=== PATIENT | female | born 1955 | race Two or more races ===

== ENCOUNTER 2017-05-06 07:35 | Emergency (ER) | payer SELFPAY ==
[~2017-05-06] VITALS: Ht 162.6 cm; Wt 77.1 kg
[~2017-05-06 07:35] MED LIST: IBUP200C5 PO
--- NOTE | 2017-05-06 08:32 | NUR ---
PT REC'D TO ER C/O ONE WEEK LEFT LEG PAIN
[2017-05-06 08:53] LABS: BASOPHILS % (AUTO) 0.7 % (0.0-2.0); EOSINOPHILS # (AUTO) 0.1 /CMM (0.0-0.7); EOSINOPHILS % (AUTO) 2.7 % (0.0-6.0); HEMATOCRIT 42 % (33-45); HEMOGLOBIN 14.4 g/dL (11.5-14.8); LYMPHOCYTES # (AUTO) 1.1 /CMM (0.8-4.8); LYMPHOCYTES % (AUTO) 24.5 % (20.0-44.0); MEAN CORPUSCULAR HEMOGLOBIN 30 PG (26.0-33.0); MEAN CORPUSCULAR HGB CONC 34 g/dl (31.0-36.0); MEAN CORPUSCULAR VOLUME 87 fL (82-100); MONOCYTES # (AUTO) 0.4 /CMM (0.1-1.30); MONOCYTES % (AUTO) 9.1 % (2.0-12.0); NEUTROPHILS # (AUTO) 2.9 /CMM (1.8-8.9); PLATELET COUNT (AUTO) 242 /CMM (150-450); RDW COEFFICIENT OF VARIATION 13.6 (11.5-15.0); RED BLOOD CELL COUNT(AUTO) 4.89 MIL/uL (4.0-5.2); WHITE BLOOD COUNT (AUTO) 4.6 K/uL (4.3-11.0)
[2017-05-06] MEDS ORDERED: HYDROCODONE/APAP 5/325MG 1 EACH TABLET ONE (08:59)
[2017-05-06] MEDS ORDERED: HYDROCODONE/APAP 5/325MG 1 EACH TABLET PO ONE (09:00)
[2017-05-06 09:03] LABS: CALCIUM, SERUM 8.4 mg/dL (8.5-10.1); CREATININE 0.7 mg/dL (0.6-1.3)
[2017-05-06 09:04] LABS: POTASSIUM 2.8 mmol/L (3.5-5.1)
--- NOTE | 2017-05-06 09:17 | NUR ---
PT GIVEN KDUR NORCO 5325 MG PO
[2017-05-06] MEDS ORDERED: POTASSIUM CHLORIDE 20 MEQ TAB.PRT.SR PO ONE ×2 (09:19→09:30)
[2017-05-06] MEDS ORDERED: POTASSIUM CHLORIDE 10 MEQ/50 ML PREMIXED IVPB FOR PERIPHERAL LINE IV ONE (09:30)
--- NOTE | 2017-05-06 09:57 | NUR ---
IV STARTED 20 RT AC PER MD
[2017-05-06] MEDS ORDERED: Magnesium 1GM/D5W 100ML PREMIX 200 ML IV ONE (10:03)
--- NOTE | 2017-05-06 10:05 | NUR ---
CALLED PHARMACY, SPOKE O SIXTO FOX POTASSIUM CL IVPB
[2017-05-06] MEDS: Magnesium 1GM/D5W 100ML PREMIX 100 ML IV SCH ×2 (10:09→12:01)
[2017-05-06] MEDS: Potassium Chloride 10 MEQ in IV D5W 50 ML IV SCH ×3 (11:00→12:00)
--- NOTE | 2017-05-06 11:29 | NUR ---
PT GIVEN POT PER MD ORDER 50/50 X2
--- NOTE | 2017-05-06 12:02 | NUR ---
2ND BAG POT 50/50 OVER ONE HOUR STARTED NOW END TIME 1300
--- NOTE | 2017-05-06 12:20 | NUR ---
LEFT ARM BURNING NS 500 CC
--- NOTE | 2017-05-06 13:03 | NUR ---
PT RESTING IV LEFT AC SITE GOOD
[2017-05-06 13:32] VITALS: BP 162/79
--- NOTE | 2017-05-06 13:36 | NUR ---
PT. VERBALIZED UNDERSTANDING OF AFTERCARE INSTRUCTIONS.Patient discharged to home in stable condition. Written and verbal after care instructions given. Patient verbalizes understanding of instruction.IV removed. Catheter intact and site benign. Pressure and 4x4 applied to site. No bleeding noted.
== END 2017-05-06 13:37 | disposition home or self-care (01) ==
LOC: ER 07:37
DX: M79.604 Pain in right leg (principal); R20.2 Paresthesia of skin; E87.6 Hypokalemia; I10 Essential (primary) hypertension
CPT/HCPCS: 36415; 73502; 80048; 82040; 82550; 85025; 93971; 96365 ×2; 96366; 96368; 96375; 99285; A4216; A4606; J3475; J3480; J7040; J7060; Z7610

== ENCOUNTER 2021-01-27 03:30 | Inpatient (IN) | payer OTHER ==
[~2021-01-27] VITALS: Ht 152.4 cm; Wt 77.1 kg
--- NOTE | 2021-01-27 03:45 | NUR ---
SAMPLE DISPLAY PREPARER NOTE RECEIVED PATIENT VIA GURNEY FROM STORE MANAGER. DIRECT ADMIT FROM MARY JO MAGNOLIA. A/OX3, AMHARIC SPEAKING. ON OXYGEN 4L/MIN VIA NASAL CANNULA. O2 SAT 91%. INCREASED O2 TO 6L, REMAINS SATING 91-92%, PLACED ON A SIMPLE MASK 10L/MIN, O2 SAT 95%. RESPIRATIONS ARE EVEN AND UNLABORED. PATIENT DENIES SOB. NO C/O PAIN AT THIS TIME. IN NO APPARENT DISTRESS. EXTERNAL TELE MONITOR READS SINUS RHYTHM SINUS TACHYCARDIA. IV ACCESS IN RAC#20 PATENT AND SALINE LOCKED. INATAL PHYSICAL ASSESSMENT COMPLETED AT THIS TIME. SKIN ASSESSMENT DONE, SKIN INTACT. SENIOR ADMINISTRATIVE SERVICES OFFICER OBTAINED VITALS AND COMPLETED BELONGINGS LIST. BED IS LOW AND LOCKED, HOB ELEVATED IN SEMI FOWLERS, SIDE RIAL SUP X2, CALL LIGHT WITHIN REACH. EXPLAINED USE OF CALL LIGHT.
[2021-01-27 04:00] VITALS: BP 145/71
[2021-01-27] MEDS ORDERED: ACETAMINOPHEN 325 MG TABLET PO PRN (04:30)
[2021-01-27] MEDS ORDERED: ONDANSETRON HCL/PF 4 MG/2 ML VIAL IVP PRN (04:30)
--- NOTE | 2021-01-27 05:23 | NUR ---
RN NOTE CALLED EXTRACTIONS TECHNOLOGIST DR. CHAN TO INFORMED HIM THAT I RECEIVED PATIENT ON 4L/MIN VIA NASAL CANNULA O2 SAT 91%, INCREASED TO 10L SIMPLE MASK SATURATING 95%, PATIENTS O2 SAT HAS GONE DOWN TO 92% ON 10L, AND NOW PATIENT IS CURRENTLY ON 15L NRB. NO NEW ORDERS RECEIVED.
[2021-01-27 06:33] LABS: BASOPHILS % (AUTO) 0.1 % (0.0-2.0); HEMATOCRIT 36 % (33-45); HEMOGLOBIN 12.3 g/dL (11.5-14.8); LYMPHOCYTES # (AUTO) 0.4 K/uL (0.8-4.8); LYMPHOCYTES % (AUTO) 5.1 % (20.0-44.0); MEAN CORPUSCULAR HGB CONC 34 g/dl (31.0-36.0); MEAN CORPUSCULAR VOLUME 91 fL (82-100); MONOCYTES # (AUTO) 0.5 K/uL (0.1-1.30); MONOCYTES % (AUTO) 6.6 % (2.0-12.0); NEUTROPHILS # (AUTO) 6.9 K/uL (1.8-8.9); NEUTROPHILS % (AUTO) 88.2 % (43.0-81.0); PLATELET COUNT (AUTO) 161 K/uL (150-450); RED BLOOD CELL COUNT(AUTO) 4.02 MIL/uL (4.0-5.2); WHITE BLOOD COUNT (AUTO) 7.8 K/uL (4.3-11.0)
--- NOTE | 2021-01-27 06:43 | NUR ---
RN NOTE PATIENT RESTING IN BED. A/OX3, ON OXYGEN 15L/MIN VIA VIA NRB, O2 SAT 97%. RESPIRATIONS ARE EVEN AND UNLABORED. NO SOB. NO DISTRESS. TELE READS SINUS RHYTHM. RAC#20 SALINE LOCKED. BED REMAINS LOW AND LOCKED, HOB ELEVATED IN SEMI FOWLERS, SIDE RIAL SUP X2, CALL LIGHT WITHIN REACH. WILL ENDORSE TO ONCOMIING SHIFT
[2021-01-27 07:14] LABS: CREATININE 0.5 mg/dL (0.6-1.3); POTASSIUM 3.3 mmol/L (3.5-5.1)
--- NOTE | 2021-01-27 07:30 | NUR ---
RN OPENING NOTES TELE NOTE PATIENT RECEIVED RESTING IN BED. A/OX3-4, ON OXYGEN 15L/MIN VIA VIA NRB, O2 SAT 95%. RESPIRATIONS ARE EVEN AND UNLABORED WITH NO SIGH OF DISTRESS AT THIS TIME. NO SOB. TELE READS SINUS RHYTHM HR 95. RAC#20 SALINE LOCKED AND FLUSHING WELL, SAFETY MEASURES IN PLACE, BED REMAINS LOW AND LOCKED, HOB ELEVATED IN SEMI FOWLERS, CALL LIGHT WITHIN REACH. WILL CONTINUE TO MONITOR
[2021-01-27 08:19] LABS: C-REACTIVE PROTEIN 20.2 mg/dL (0.0-0.9)
--- NOTE | 2021-01-27 08:22 | NUR ---
TELE NOTES ASSISTED PT TO BEDSIDE COMMODE ABLE TO URINATE WELL, AND EATING BREAKFAST ALSO WELL, NO SOB AT THIS TIME WILL CONTINUE TO MONITOR
[2021-01-27] MEDS: DEXAMETHASONE SOD PHOSPHATE 10 MG/ML VIAL IV SCH (08:58)
[2021-01-27 09:00] VITALS: BP 100/61
[2021-01-27] MEDS ORDERED: GABA-532 PO (09:44)
[2021-01-27] MEDS ORDERED: ATOR20TA PO (09:44)
[2021-01-27] MEDS ORDERED: ASPI-1498 PO (09:44)
[2021-01-27] MEDS ORDERED: LABE300T2 PO (09:44)
[2021-01-27] MEDS ORDERED: MINO2.5T PO (09:44)
[2021-01-27] MEDS ORDERED: AMLO10TA4 PO (09:44)
[2021-01-27] MEDS ORDERED: LEVE750T10 PO (09:44)
[2021-01-27] MEDS ORDERED: LISI20TA30 PO (09:44)
--- NOTE | 2021-01-27 10:00 | NUR ---
radio television announcer note dr heaton at beside updated patient condition, ekg done per order dr campos as ordered
[2021-01-27 10:03] LABS: MAGNESIUM 2.3 mg/dL (1.8-2.4)
[2021-01-27] MEDS: POTASSIUM CHLORIDE 20 MEQ TAB.PRT.SR PO SCH ×3 (10:25→12:31)
[2021-01-27 10:26] LABS: THYROID STIMULATING HORMONE 0.841 uIU/mL (0.358-3.74)
[2021-01-27] MEDS: ENOXAPARIN SODIUM 40 MG/0.4 ML DISP.SYRIN SQ SCH ×2 (10:32→21:54)
--- NOTE | 2021-01-27 12:37 | NUR ---
telescope operator note 2d echo done as ordered
[2021-01-27 12:39] VITALS: BP 100/39
--- NOTE | 2021-01-27 12:41 | NUR ---
telephoto engineer note spoke with dr abundio villareal do med recon stated that will do it Addendum: 01/27/21 at 1401 by FAISAL DON RN DOG TRACK KENNEL MANAGER NOTE ROUNDS MADE, RESTING COMFORTABLY, NOT IN DISTRESS
[2021-01-27] MEDS ORDERED: LABE100T5 PO (14:59)
[2021-01-27] MEDS ORDERED: CHOL200076 PO (15:15)
[2021-01-27] MEDS ORDERED: REMDESIVIR (CHARGED) 200 MG, *LOADING DOSE 1 EA in IV NS 0.9% 210 ML IV ONE (16:00)
[2021-01-27] MEDS: GABAPENTIN 100 MG CAPSULE PO SCH (16:32)
[2021-01-27] MEDS: LEVETIRACETAM (250 MG) 250 MG TABLET PO SCH (16:33)
[2021-01-27 16:48] VITALS: BP 116/55
--- NOTE | 2021-01-27 17:16 | NUR ---
agent telegrapher note per dr acevedo to resume Catracho and Michael from med recon , order carried out
[2021-01-27] MEDS ORDERED: IBUPROFEN 200 MG TABLET PO PRN (17:30)
--- NOTE | 2021-01-27 18:25 | NUR ---
RN CLOSING NOTES TELE. PATIENT IS RESTING IN BED. A/OX3-4, ON OXYGEN 15L/MIN VIA NRM, O2 SAT 95%. RESPIRATIONS ARE EVEN AND UNLABORED WITH NO SIGH OF DISTRESS AT THIS TIME, NO SOB. TELE READS SINUS RHYTHM HR 95. RAC#20 SALINE LOCKED AND FLUSHING WELL, SAFETY MEASURES IN PLACE, BED REMAINS LOW AND LOCKED, HOB ELEVATED IN SEMI FOWLERS, CALL LIGHT WITHIN REACH. ALL NEEDS MET DURING SHIFT, WILL ENDORSE TO RN MEDICAREKENNEL HAND
--- NOTE | 2021-01-27 18:35 | NUR ---
PRESALES CONSULTANT NOTES PT ASSISTED TO BED SIDE COMMODE WITHOUT PROBLEM, CHANGED TO SIMPLE MASK 8L/MIN O2 SAT 94 % WILL CONTINUE TO MONITOR.
[2021-01-27 20:00] VITALS: BP 123/76
[2021-01-28] VITALS: BP 127/81
[2021-01-28 04:00] VITALS: BP 132/85
[2021-01-28 07:01] LABS: BASOPHILS % (AUTO) 0.1 % (0.0-2.0); HEMATOCRIT 40 % (33-45); HEMOGLOBIN 13.2 g/dL (11.5-14.8); LYMPHOCYTES # (AUTO) 0.5 K/uL (0.8-4.8); LYMPHOCYTES % (AUTO) 6.2 % (20.0-44.0); MEAN CORPUSCULAR HGB CONC 33 g/dl (31.0-36.0); MEAN CORPUSCULAR VOLUME 91 fL (82-100); MONOCYTES # (AUTO) 0.4 K/uL (0.1-1.30); MONOCYTES % (AUTO) 6.1 % (2.0-12.0); NEUTROPHILS # (AUTO) 6.3 K/uL (1.8-8.9); NEUTROPHILS % (AUTO) 87.6 % (43.0-81.0); PLATELET COUNT (AUTO) 211 K/uL (150-450); RED BLOOD CELL COUNT(AUTO) 4.43 MIL/uL (4.0-5.2); WHITE BLOOD COUNT (AUTO) 7.2 K/uL (4.3-11.0)
[2021-01-28 07:19] LABS: ALBUMIN 2.4 g/dL (3.4-5.0); BILIRUBIN,TOTAL 0.2 mg/dL (0.2-1.0); CALCIUM, SERUM 8.7 mg/dL (8.5-10.1); CREATININE 0.6 mg/dL (0.6-1.3); MAGNESIUM 2.5 mg/dL (1.8-2.4); PHOSPHORUS 2.7 mg/dL (2.5-4.9); TOTAL PROTEIN, SERUM 7.3 g/dL (6.4-8.2)
--- NOTE | 2021-01-28 07:30 | NUR ---
RN OPENING NOTES RECEIVED PATIENT RESTING IN BED. A/OX3-4, ON OXYGEN VIA SIMPLE MASK AT 8LPM, O2 SAT 95%. RESPIRATIONS ARE EVEN AND UNLABORED WITH NO S/SX OF DISTRESS AT THIS TIME, NO SOB.IV ACCESS ON RAC#20 SALINE LOCKED AND FLUSHING WELL, SAFETY MEASURES IN PLACE, BED ON LOW AND LOCKED, HOB ELEVATED IN SEMI FOWLERS, CALL LIGHT WITHIN REACH., SIDE RAILS UP X 2. WILL CONTINUE TO MONITOR ACCORDINGLY
[2021-01-28 08:00] VITALS: BP 145/80
[2021-01-28] MEDS: DEXAMETHASONE SOD PHOSPHATE 10 MG/ML VIAL IV SCH (09:52)
[2021-01-28] MEDS: LEVETIRACETAM (250 MG) 250 MG TABLET PO SCH ×4 (09:52→17:09)
[2021-01-28] MEDS: GABAPENTIN 100 MG CAPSULE PO SCH ×3 (09:52→17:08)
[2021-01-28] MEDS: ENOXAPARIN SODIUM 40 MG/0.4 ML DISP.SYRIN SQ SCH ×2 (09:53→21:22)
[2021-01-28 12:12] VITALS: BP 147/78
[2021-01-28 12:29] LABS: C-REACTIVE PROTEIN 25.6 mg/dL (0.0-0.9)
[2021-01-28] MEDS: REMDESIVIR (CHARGED) 100 MG in IV NS 0.9% 100 ML IV SCH (16:00)
[2021-01-28 16:14] VITALS: BP 130/77
--- NOTE | 2021-01-28 17:56 | NUR ---
RN NOTES PATIENT REFUSED 1700 DOSE OF KEPPRA. RISK EXPLAINED, WILL RELAY CONCERN TO MD.
--- NOTE | 2021-01-28 18:37 | NUR ---
RN CLOSING NOTES PATIENT RESTING IN BED. A/OX3-4, ON OXYGEN VIA SIMPLE MASK AT 8LPM, O2 SAT 95%. RESPIRATIONS ARE EVEN AND UNLABORED WITH NO S/SX OF DISTRESS AT THIS TIME, NO SOB.IV ACCESS ON RAC#20 SALINE LOCKED AND FLUSHING WELL, SAFETY MEASURES IN PLACE, BED ON LOW AND LOCKED, HOB ELEVATED IN SEMI FOWLERS, CALL LIGHT WITHIN REACH., SIDE RAILS UP X 2. ALL NEEDS ATTENDED AND MET, DUE MEDS GIVEN ORDERED. WILL ENDORSE TO ONCOMING SHIFT FOR WILL.
--- NOTE | 2021-01-28 19:10 | NUR ---
RN NOTE RECEIVED PATIENT IN BED, AO X 4, PRIMARY LANGUAGE IS AMERICAN UNDERSTANDS BASIC KYRGY[place]. IN NO S/SX OF ACUTE DISTRESS AT THIS TIME, RESPIRATIONS EVEN AND UNLABORED, SATURATION AT 96% ON 8L VIA O2 MASK, SR ON THE MONITOR, HR IS 87. NOTED IV SITE AT RAC 20G, PATENT AND FLUSHING WELL, NO S/S OF INFECTION OR INFILTRATION, SALINE LOCKED. SAFETY MEASURES IMPLEMENTED. PATIENT BED ALARM IS ON. HEAD OF BED ELEVATED. BED IS LOCKED, IN LOWEST POSITION AND SIDE RAILS UP. CALL LIGHT WITHIN REACH OF THE PATIENT. WILL CONTINUE TO MONITOR AND REASSESS FOR ANY CHANGES.
[2021-01-28 20:00] VITALS: BP 146/75
[2021-01-29] VITALS: BP 157/85
[2021-01-29 04:00] VITALS: BP 162/92
--- NOTE | 2021-01-29 05:00 | NUR ---
RN NOTE NOTED BP AT 162/92 AT 0430. RECHECKED AT 0500 AND RESULTED 172/96. DR CHAN WAS NOTIFIED, AWAITING CALL BACK.
--- NOTE | 2021-01-29 05:50 | NUR ---
RN NOTE CALL BACK RECEIVED FROM DR CHAN, ORDERS RECEIVED TO ADMINISTER AMLODIPINE 10 MG X 1 NOW, IF SBP REMAINS >160, MAY GIVE LISINOPRIL 20 MG X 1. PLS FOLLOW UP MED RECON WITH SOCO COREA MD-ENDORSED TO ALEXY WORRELL Addendum: 01/29/21 at 0743 by LOI CURIEL RN BP RECHECKED AND RESULTED: 142/85.
[2021-01-29 06:26] LABS: HEMATOCRIT 42 % (33-45); LYMPHOCYTES # (AUTO) 0.5 K/uL (0.8-4.8); LYMPHOCYTES % (AUTO) 6.5 % (20.0-44.0); MEAN CORPUSCULAR HGB CONC 34 g/dl (31.0-36.0); MEAN CORPUSCULAR VOLUME 90 fL (82-100); MONOCYTES # (AUTO) 0.4 K/uL (0.1-1.30); MONOCYTES % (AUTO) 5.7 % (2.0-12.0); NEUTROPHILS % (AUTO) 87.8 % (43.0-81.0); PLATELET COUNT (AUTO) 281 K/uL (150-450); RED BLOOD CELL COUNT(AUTO) 4.64 MIL/uL (4.0-5.2); WHITE BLOOD COUNT (AUTO) 7.9 K/uL (4.3-11.0)
[2021-01-29] MEDS ORDERED: AMLODIPINE BESYLATE 10 MG TABLET PO ONE (06:30)
[2021-01-29 07:02] LABS: ALBUMIN 2.7 g/dL (3.4-5.0); BILIRUBIN,DIRECT 0.1 mg/dL (0.0-0.2); BILIRUBIN,TOTAL 0.3 mg/dL (0.2-1.0); CALCIUM, SERUM 8.8 mg/dL (8.5-10.1); CREATININE 0.6 mg/dL (0.6-1.3); MAGNESIUM 2.5 mg/dL (1.8-2.4); PHOSPHORUS 2.7 mg/dL (2.5-4.9); POTASSIUM 3.2 mmol/L (3.5-5.1); TOTAL PROTEIN, SERUM 7.6 g/dL (6.4-8.2)
--- NOTE | 2021-01-29 07:15 | NUR ---
RN OPENING NOTES RECEIVED PATIENT RESTING IN BED. A/OX3-4, ON OXYGEN VIA SIMPLE MASK AT 8LPM, O2 SAT 95%. RESPIRATIONS ARE EVEN AND UNLABORED WITH NO SIGNS AND SYMPTOMS OF DISTRESS AT THIS TIME, NO SOB.IV ACCESS ON RAC G20 SALINE LOCKED AND FLUSHING WELL, SINUS RHYTHM AT 70S SAFETY MEASURES IN PLACE, BED ON LOW AND LOCKED, HOB ELEVATED IN SEMI FOWLERS, CALL LIGHT WITHIN REACH., SIDE RAILS UP X 2. WILL CONTINUE TO MONITOR ACCORDINGLY
[2021-01-29 08:00] VITALS: BP 172/96
[2021-01-29] MEDS: LEVETIRACETAM (250 MG) 250 MG TABLET PO SCH ×4 (09:50→18:15)
[2021-01-29] MEDS: POTASSIUM CHLORIDE 20 MEQ TAB.PRT.SR PO SCH ×2 (09:50→10:56)
[2021-01-29] MEDS: DEXAMETHASONE SOD PHOSPHATE 10 MG/ML VIAL IV SCH (09:50)
[2021-01-29] MEDS: GABAPENTIN 100 MG CAPSULE PO SCH ×3 (09:50→18:15)
[2021-01-29] MEDS: ENOXAPARIN SODIUM 40 MG/0.4 ML DISP.SYRIN SQ SCH ×2 (10:00→21:30)
[2021-01-29] MEDS: CEFEPIME 2 GM in IV D5W 100 ML IV SCH ×2 (10:13→21:14)
[2021-01-29] MEDS: AZITHROMYCIN 500 MG in IV D5W 250 ML IV SCH (10:56)
[2021-01-29 12:00] VITALS: BP 172/96
[2021-01-29] MEDS ORDERED: GABAPENTIN 100 MG CAPSULE PO SCH (13:30)
[2021-01-29] MEDS: LABETALOL HCL (100MG) 100 MG TABLET PO SCH ×2 (13:58→18:14)
[2021-01-29] MEDS: AMLODIPINE BESYLATE 10 MG TABLET PO SCH (13:58)
[2021-01-29] MEDS: ASPIRIN EC 81 MG TABLET.DR PO SCH (13:59)
[2021-01-29] MEDS: LISINOPRIL (20MG) 20 MG TABLET PO SCH (13:59)
[2021-01-29 16:00] VITALS: BP 118/67
[2021-01-29] MEDS: REMDESIVIR (CHARGED) 100 MG in IV NS 0.9% 100 ML IV SCH (17:01)
[2021-01-29] MEDS: MINOXIDIL (2.5MG) 2.5 MG TABLET PO SCH (18:15)
--- NOTE | 2021-01-29 18:37 | NUR ---
RN CLOSING NOTES PATIENT STILL RESTING IN BED. A/OX3-4, ON OXYGEN VIA SIMPLE MASK AT 8LPM, O2 SAT 95%. RESPIRATIONS ARE EVEN AND UNLABORED WITH NO SIGNS AND SYMPTOMS OF DISTRESS AT THIS TIME, NO SOB.IV ACCESS ON RAC G20 SALINE LOCKED AND FLUSHING WELL, SINUS RHYTHM STILL AT 70S SAFETY MEASURES IN PLACE, BED ON LOW AND LOCKED, HOB ELEVATED IN SEMI FOWLERS, CALL LIGHT WITHIN REACH., SIDE RAILS UP X 2. WILL ENDORSE CONTINUITY OF CARE TO NEXT SHIFT
--- NOTE | 2021-01-29 19:00 | NUR ---
RN NOTE RECEIVED PATIENT IN BED, AO X 4, PRIMARY LANGUAGE IS NAURUAN UNDERSTANDS BASIC SPANISH. IN NO S/SX OF ACUTE DISTRESS AT THIS TIME, RESPIRATIONS EVEN AND UNLABORED, SATURATION AT 95% ON 7L VIA O2 MASK, SR ON THE MONITOR, HR IS 82. NOTED IV SITE AT RAC 20G, PATENT AND FLUSHING WELL, NO S/S OF INFECTION OR INFILTRATION, SALINE LOCKED. SAFETY MEASURES IMPLEMENTED. PATIENT BED ALARM IS ON. HEAD OF BED ELEVATED. BED IS LOCKED, IN LOWEST POSITION AND SIDE RAILS UP. CALL LIGHT WITHIN REACH OF THE PATIENT. WILL CONTINUE TO MONITOR AND REASSESS FOR ANY CHANGES.
[2021-01-29 20:00] VITALS: BP 132/73
[2021-01-29] MEDS: ATORVASTATIN 10 MG TABLET PO SCH (21:14)
[2021-01-30] VITALS (7 sets, daily range): BP systolic 114–141; BP diastolic 65–84
[2021-01-30] MEDS: CEFEPIME 2 GM in IV D5W 100 ML IV SCH ×3 (05:08→20:01)
[2021-01-30 06:43] LABS: BASOPHILS % (AUTO) 0.1 % (0.0-2.0); HEMATOCRIT 42 % (33-45); HEMOGLOBIN 13.9 g/dL (11.5-14.8); LYMPHOCYTES # (AUTO) 0.5 K/uL (0.8-4.8); LYMPHOCYTES % (AUTO) 7.6 % (20.0-44.0); MEAN CORPUSCULAR HGB CONC 33 g/dl (31.0-36.0); MEAN CORPUSCULAR VOLUME 91 fL (82-100); MONOCYTES # (AUTO) 0.5 K/uL (0.1-1.30); MONOCYTES % (AUTO) 7.1 % (2.0-12.0); NEUTROPHILS % (AUTO) 85.2 % (43.0-81.0); PLATELET COUNT (AUTO) 315 K/uL (150-450); RED BLOOD CELL COUNT(AUTO) 4.63 MIL/uL (4.0-5.2); WHITE BLOOD COUNT (AUTO) 7.1 K/uL (4.3-11.0)
[2021-01-30 07:02] LABS: ALBUMIN 2.5 g/dL (3.4-5.0); BILIRUBIN,DIRECT 0.1 mg/dL (0.0-0.2); BILIRUBIN,TOTAL 0.3 mg/dL (0.2-1.0); CALCIUM, SERUM 8.6 mg/dL (8.5-10.1); CREATININE 0.7 mg/dL (0.6-1.3); POTASSIUM 3.5 mmol/L (3.5-5.1)
--- NOTE | 2021-01-30 07:16 | NUR ---
RN NOTE PATIENT IS IN BED WITH HOB AT SEMI FOWLERS POSITION. PATIENT IS ON 7L NC WITH NO SIGNS OF LABORED BREATHING. PATIENT IS AOX4. RAC 20G IS PATENT AND INTACT. BED IS LOCKED IN THE LOWEST POSITION, 3 GUARD RAILS RAISED, CALL RIVERA WITHIN REACH, AND ALL HOSPITAL SAFETY PRECAUTIONS AR EBEING FOLLOWED. IWLL CONTINUE TO MONITOR THROUGHOUT SHIFT.
[2021-01-30] MEDS: DEXAMETHASONE SOD PHOSPHATE 10 MG/ML VIAL IV SCH (08:28)
[2021-01-30] MEDS: LABETALOL HCL (100MG) 100 MG TABLET PO SCH ×3 (08:28→16:57)
[2021-01-30] MEDS: ASPIRIN EC 81 MG TABLET.DR PO SCH (08:29)
[2021-01-30] MEDS: LISINOPRIL (20MG) 20 MG TABLET PO SCH (08:29)
[2021-01-30] MEDS: GABAPENTIN 100 MG CAPSULE PO SCH ×3 (08:29→16:57)
[2021-01-30] MEDS: LEVETIRACETAM (250 MG) 250 MG TABLET PO SCH ×2 (08:29→16:57)
[2021-01-30] MEDS: AMLODIPINE BESYLATE 10 MG TABLET PO SCH (08:29)
[2021-01-30] MEDS: ENOXAPARIN SODIUM 40 MG/0.4 ML DISP.SYRIN SQ SCH ×2 (08:31→20:03)
[2021-01-30] MEDS: AZITHROMYCIN 500 MG in IV D5W 250 ML IV SCH (09:50)
[2021-01-30 16:06] LABS: C-REACTIVE PROTEIN 3.7 mg/dL (0.0-0.9)
[2021-01-30] MEDS: REMDESIVIR (CHARGED) 100 MG in IV NS 0.9% 100 ML IV SCH (16:53)
[2021-01-30] MEDS: MINOXIDIL (2.5MG) 2.5 MG TABLET PO SCH (17:08)
--- NOTE | 2021-01-30 18:53 | NUR ---
RN NOTE PATIENT IS IN BED WITH HOB AT SEMI FOWLERS POSITION. PATIENT IS ON 5L NC WITH NO SIGNS OF LABORED BREATHING. PATIENT IS AOX4. RAC 20G IS PATENT AND INTACT. BED IS LOCKED IN THE LOWEST POSITION, 3 GUARD RAILS RAISED, CALL RIVERA WITHIN REACH, AND ALL HOSPITAL SAFETY PRECAUTIONS ARE BEING FOLLOWED. ALL DUE MEDS GIVEN AND PATIENT REMAINED STABLE THROUGHOUT SHIFT. WILL ENDORSE TO INJECTION MOLDING MACHINE SETTER RN.
[2021-01-30 19:30] LABS: BAND % (MANUAL) 1 % (0.0-5.0); LYMPHOCYTES % (MANUAL) 14 % (16-48); MONOCYTES % (MANUAL) 6 % (0-11.0); NEUTROPHILS % (MANUAL) 79 (42-76)
--- NOTE | 2021-01-30 20:00 | NUR ---
RECEIVED PATIENT IN BED, ALERT AND ORIENTED X4, ON 5LPM VIA NC, NO RESPIRATORY DISTRESS, INTERMITTENT COUGHING, AFEBRILE, VS STABLE, USES BSC, KEPT SAFE, WILL CONTINUE TO MONITOR.
[2021-01-30] MEDS: ATORVASTATIN 10 MG TABLET PO SCH (21:04)
[2021-01-31 00:29] VITALS: BP 141/90
[2021-01-31 04:00] VITALS: BP 130/79
[2021-01-31] MEDS: CEFEPIME 2 GM in IV D5W 100 ML IV SCH ×2 (04:13→12:15)
--- NOTE | 2021-01-31 06:40 | NUR ---
ALERT/ORIENTED X4, TITRATED O2 FROM 4 TO 3LPM, SPO2 96%, NO COMPLAIN OF PAIN, USES BSC, CONTINUE MAXIPIME, DECADRON, ZITHROMAX, REMDESIVIR / TODAY.
[2021-01-31 07:07] LABS: D-DIMER 0.48 mg/L(FEU (0.17-0.50)
[2021-01-31 07:12] LABS: EOSINOPHILS % (AUTO) 0.1 % (0.0-6.0); HEMATOCRIT 41 % (33-45); HEMOGLOBIN 13.7 g/dL (11.5-14.8); LYMPHOCYTES # (AUTO) 0.6 K/uL (0.8-4.8); LYMPHOCYTES % (AUTO) 7.7 % (20.0-44.0); MEAN CORPUSCULAR HGB CONC 33 g/dl (31.0-36.0); MEAN CORPUSCULAR VOLUME 89 fL (82-100); MONOCYTES # (AUTO) 0.6 K/uL (0.1-1.30); MONOCYTES % (AUTO) 7.5 % (2.0-12.0); NEUTROPHILS # (AUTO) 6.4 K/uL (1.8-8.9); NEUTROPHILS % (AUTO) 84.7 % (43.0-81.0); PLATELET COUNT (AUTO) 340 K/uL (150-450); WHITE BLOOD COUNT (AUTO) 7.5 K/uL (4.3-11.0)
--- NOTE | 2021-01-31 07:35 | NUR ---
RN OPENING NOTE PATIENT RECEIVED IN BED, RESTING, A&OX4. PATIENT ON 4L O2 NC WITH NO SIGNS OF LABORED BREATHING AT THIS TIME. PATIENT ON TELE MONITOR. RIGHT AC 20G PIV IN PLACE, PATENT WITH NO SIGNS OF INFILTRATION. NO DISTRESS NOTED AT THIS TIME. BED LOCKED AND IN LOWEST POSITION, 2 SIDE RAILS UP, CALL LIGHT WITHIN REACH, ALL SAFETY MEASURES IMPLEMENTED. WILL CONTINUE TO MONITOR.
[2021-01-31 07:46] LABS: ALBUMIN 2.5 g/dL (3.4-5.0); BILIRUBIN,DIRECT 0.1 mg/dL (0.0-0.2); BILIRUBIN,TOTAL 0.4 mg/dL (0.2-1.0); CALCIUM, SERUM 8.2 mg/dL (8.5-10.1); CREATININE 0.6 mg/dL (0.6-1.3); MAGNESIUM 2.5 mg/dL (1.8-2.4); PHOSPHORUS 2.8 mg/dL (2.5-4.9); POTASSIUM 3.2 mmol/L (3.5-5.1); TOTAL PROTEIN, SERUM 6.6 g/dL (6.4-8.2)
[2021-01-31 08:00] VITALS: BP 136/82
[2021-01-31] MEDS: AMLODIPINE BESYLATE 10 MG TABLET PO SCH (08:56)
[2021-01-31] MEDS: ASPIRIN EC 81 MG TABLET.DR PO SCH (08:56)
[2021-01-31] MEDS: GABAPENTIN 100 MG CAPSULE PO SCH ×3 (08:57→17:01)
[2021-01-31] MEDS: DEXAMETHASONE SOD PHOSPHATE 10 MG/ML VIAL IV SCH (08:57)
[2021-01-31] MEDS: LISINOPRIL (20MG) 20 MG TABLET PO SCH (08:57)
[2021-01-31] MEDS: LEVETIRACETAM (250 MG) 250 MG TABLET PO SCH ×2 (08:57→17:01)
[2021-01-31] MEDS: ENOXAPARIN SODIUM 40 MG/0.4 ML DISP.SYRIN SQ SCH ×2 (08:58→21:47)
[2021-01-31] MEDS: LABETALOL HCL (100MG) 100 MG TABLET PO SCH ×3 (09:00→17:01)
[2021-01-31] MEDS: AZITHROMYCIN 500 MG in IV D5W 250 ML IV SCH (09:01)
[2021-01-31] MEDS ORDERED: POTASSIUM CHLORIDE 20 MEQ TAB.PRT.SR PO SCH ×2 (10:00→11:00)
[2021-01-31 10:37] LABS: BAND % (MANUAL) 2 % (0.0-5.0); LYMPHOCYTES % (MANUAL) 14 % (16-48); MONOCYTES % (MANUAL) 2 % (0-11.0); NEUTROPHILS % (MANUAL) 82 (42-76)
[2021-01-31 12:00] VITALS: BP 122/78
[2021-01-31] MEDS: REMDESIVIR (CHARGED) 100 MG in IV NS 0.9% 100 ML IV SCH (15:11)
[2021-01-31 16:00] VITALS: BP 117/72
[2021-01-31] MEDS: MINOXIDIL (2.5MG) 2.5 MG TABLET PO SCH (17:01)
--- NOTE | 2021-01-31 18:39 | NUR ---
RN CLOSING NOTE PATIENT IN BED, RESTING, A&OX4. PATIENT ON 3L O2 NC WITH NO SIGNS OF LABORED BREATHING AT THIS TIME. TELE MONITOR ON, SINUS RHYTHM.RIGHT AC 20G PIV IN PLACE, PATENT WITH NO SIGNS OF INFILTRATION. NO DISTRESS NOTED AT THIS TIME. BED LOCKED AND IN LOWEST POSITION, 2 SIDE RAILS UP, CALL LIGHT WITHIN REACH, ALL SAFETY MEASURES IMPLEMENTED. WILL ENDORSE TO HAM CURER NURSE.
[2021-01-31 20:00] VITALS: BP 121/74
--- NOTE | 2021-01-31 20:10 | NUR ---
RN NOTE RECEIVED PATIENT IN BED, AWAKE, ALERT, AND VERBALLY RESPONSIVE. AOX4. ABLE TO MAKE NEEDS KNOWN. BREATHING EVEN AND UNLABORED. TOLERATING OXYGEN AT 3L/MIN. NO SOB NOTED. ON TELE MONITORING, SR AT 73 BPM. DENIES CHEST PAIN. DENIES CONSTIPATION. NOTED WITH RIGHT AC 18G. PATENT. NO INFILTRATION NOTED. DENIES PAIN AT THIS TIME. BED LOW, IN LOCKED POSITION. CALL LIGHT WITHIN REACH.
[2021-01-31] MEDS: ATORVASTATIN 10 MG TABLET PO SCH (21:45)
[2021-02-01] VITALS: BP 133/81
[2021-02-01 04:00] VITALS: BP 121/78
[2021-02-01 07:00] LABS: EOSINOPHILS % (AUTO) 0.1 % (0.0-6.0); HEMATOCRIT 42 % (33-45); HEMOGLOBIN 14.1 g/dL (11.5-14.8); LYMPHOCYTES # (AUTO) 0.6 K/uL (0.8-4.8); LYMPHOCYTES % (AUTO) 7.1 % (20.0-44.0); MEAN CORPUSCULAR HGB CONC 33 g/dl (31.0-36.0); MEAN CORPUSCULAR VOLUME 90 fL (82-100); MONOCYTES # (AUTO) 0.6 K/uL (0.1-1.30); MONOCYTES % (AUTO) 6.8 % (2.0-12.0); NEUTROPHILS # (AUTO) 7.4 K/uL (1.8-8.9); PLATELET COUNT (AUTO) 393 K/uL (150-450); WHITE BLOOD COUNT (AUTO) 8.6 K/uL (4.3-11.0)
[2021-02-01 07:26] LABS: CALCIUM, SERUM 8.5 mg/dL (8.5-10.1); CREATININE 0.7 mg/dL (0.6-1.3); POTASSIUM 3.7 mmol/L (3.5-5.1)
[2021-02-01] MEDS: LABETALOL HCL (100MG) 100 MG TABLET PO SCH ×3 (08:28→16:32)
[2021-02-01] MEDS: DEXAMETHASONE SOD PHOSPHATE 10 MG/ML VIAL IV SCH (08:28)
[2021-02-01] MEDS: GABAPENTIN 100 MG CAPSULE PO SCH ×3 (08:29→16:32)
[2021-02-01] MEDS: LEVETIRACETAM (250 MG) 250 MG TABLET PO SCH ×2 (08:29→16:32)
[2021-02-01] MEDS: ASPIRIN EC 81 MG TABLET.DR PO SCH (08:29)
[2021-02-01] MEDS: LISINOPRIL (20MG) 20 MG TABLET PO SCH (08:30)
[2021-02-01] MEDS: AMLODIPINE BESYLATE 10 MG TABLET PO SCH (08:30)
[2021-02-01] MEDS: ENOXAPARIN SODIUM 40 MG/0.4 ML DISP.SYRIN SQ SCH ×2 (08:34→21:39)
[2021-02-01 09:37] LABS: BAND % (MANUAL) 3 % (0.0-5.0); LYMPHOCYTES % (MANUAL) 10 % (16-48); METAMYELOCYTES % 1 % (0-0); MONOCYTES % (MANUAL) 7 % (0-11.0); MYELOCYTES % 5 % (0-0); NEUTROPHILS % (MANUAL) 74 (42-76)
[2021-02-01] MEDS: AZITHROMYCIN 250 MG TABLET PO SCH (10:30)
[2021-02-01 11:00] VITALS: BP 149/76
--- NOTE | 2021-02-01 11:17 | NUR ---
PATIENT FOR D/C PLANNING ,ROOM AIR SATURATION AT REST 86% NEED HOME OXYGEN CM MADE AWARE.
[2021-02-01 12:00] VITALS: BP 142/70
[2021-02-01 16:00] VITALS: BP 122/69
[2021-02-01] MEDS: MINOXIDIL (2.5MG) 2.5 MG TABLET PO SCH (18:07)
--- NOTE | 2021-02-01 18:52 | NUR ---
RECEIVED OXYGEN TANK AND OXYGEN NASAL CANNULA TO TAKE HOME WHEN D/C TOMORROW EDUCATED ON HOW TO USE AND IMPORTANCE OF USE, DEVICES ARE IN ROOM AT BED SIDE, PLAN IS TO D/C PATIENT TOMORROW AROUND 12 NOON, PATIENT AWARE AND ADVISED FAMILY MEMBERS, KEPT PATIENT DRY CLEAN, ENCOURAGED HYDRATION AND FLUIDS, ABLE TO AMBULATE TO AND FROM BED SIDE COMMODE ON OWN, SAFETY MEASURES IN PLACE, BED LOW TO FLOOR, WHEELS LOCKED, CALL LIGHT IN REACH, IV SITE PATENT EASY TO FLUSH, TOLERATING IV MEDICATIONS AND PO MEDICATIONS WELL NO ADVERSE SIDE EFFECTS NOTED FROM ABT TREATMENT, HOB IN SEMI FOWLERS , REPOSITIONED AND MADE COMFORTABLE.
--- NOTE | 2021-02-01 19:40 | NUR ---
RN NOTE PT RECEIVED IN BED. PT IS ON 3L OF O2 VIA NC SHOWING NO S/S OF RESP DISTRESS. BREATHING EVEN AND UNLABORED. NO SIGNS OF RESP DISTRESS. PT IS A/OX4. PT IS ABLE TO AMBULATE. ON CARDIAC DIET. IV ACCESS NOTED ON RIGHT AC #20. LINE FLUSHED, PATENT, AND INTACT WITH NO S/SX OF INFILTRATION. ALL SAFETY MEASURES IMPLEMENTED. BED ALARM ON. BED LOCKED AND IN LOWEST POSITION. SIDE RAILS UP. CALL LIGHT WITHIN REACH. WILL CONTINUE TO MONITOR AND ASSESS FOR ANY CHANGES THROUGHOUT SHIFT.
[2021-02-01 20:00] VITALS: BP 126/70
[2021-02-01] MEDS: ATORVASTATIN 10 MG TABLET PO SCH (21:39)
[2021-02-02 04:00] VITALS: BP 119/79
--- NOTE | 2021-02-02 06:54 | NUR ---
RN NOTE NO CHANGES IN PT CONDITION DURING SHIFT. PT IS ON 3L OF O2 VIA NC SHOWING NO S/S OF RESP DISTRESS. BREATHING EVEN AND UNLABORED. NO SIGNS OF RESP DISTRESS. PT IS A/OX4. IV ACCESS ON RIGHT AC #20. LINE FLUSHED, PATENT, AND INTACT WITH NO S/SX OF INFILTRATION. ALL DUE MEDS GIVEN ORDERED. PT KEPT CLEAN AND COMFORTABLE. ALL SAFETY MEASURES IMPLEMENTED. BED ALARM ON. BED LOCKED AND IN LOWEST POSITION. SIDE RAILS UP. CALL LIGHT WITHIN REACH. WILL ENDORSE TO MORNING SHIFT RN FOR WILL.
[2021-02-02] MEDS: LABETALOL HCL (100MG) 100 MG TABLET PO SCH ×2 (08:41→13:00)
[2021-02-02] MEDS: LISINOPRIL (20MG) 20 MG TABLET PO SCH (08:41)
[2021-02-02] MEDS: LEVETIRACETAM (250 MG) 250 MG TABLET PO SCH (08:42)
[2021-02-02] MEDS: ASPIRIN EC 81 MG TABLET.DR PO SCH (08:42)
[2021-02-02] MEDS: GABAPENTIN 100 MG CAPSULE PO SCH ×2 (08:42→13:00)
[2021-02-02] MEDS: AZITHROMYCIN 250 MG TABLET PO SCH (08:42)
[2021-02-02] MEDS: ENOXAPARIN SODIUM 40 MG/0.4 ML DISP.SYRIN SQ SCH (08:46)
[2021-02-02] MEDS: DEXAMETHASONE SOD PHOSPHATE 10 MG/ML VIAL IV SCH (08:46)
[2021-02-02 08:47] VITALS: BP 139/73
[2021-02-02] MEDS: AMLODIPINE BESYLATE 10 MG TABLET PO SCH (08:47)
[2021-02-02] MEDS ORDERED: DEXA6TAB6 PO (10:56)
[2021-02-02] MEDS ORDERED: ASPI-1169 PO (10:56)
== END 2021-02-02 13:45 | disposition home or self-care (01) | DRG 137 ==
LOC: TELE1 03:30 → MEDSG1 02-01 11:16
PROVIDERS: ATTEND Nurse Practitioner Acute Care
PROC: XW033E5 Introduction of Remdesivir Anti-infective into Peripheral Vein, Percutaneous Approach, New Technology Group 5 (ICD-10-PCS; principal; 2021-01-27)
DX: U07.1 COVID-19 (principal); J96.01 Acute respiratory failure with hypoxia; J12.82 Pneumonia due to coronavirus disease 2019; R55 Syncope and collapse; E78.5 Hyperlipidemia, unspecified; E66.9 Obesity, unspecified; Z86.73 Personal history of transient ischemic attack (TIA), and cerebral infarction without residual deficits; E87.6 Hypokalemia; I10 Essential (primary) hypertension; J98.11 Atelectasis; R74.01 Elevation of levels of liver transaminase levels; R56.9 Unspecified convulsions; J15.9 Unspecified bacterial pneumonia
CPT/HCPCS: 36415; 71045-TC; 80048-TC; 80053-TC; 80061-TC; 80076-TC; 82550-TC; 82728-TC; 83605-TC; 83615-TC; 83735-TC; 83880; 84100-TC; 84439-TC; 84443-TC; 85025-TC; 85378-TC; 85610-TC; 86140-TC; 86480; 86803; 87081-TC; 87806; 87899; 93307-TC; A4216; G0378; J0456; J0692; J1100; J1650; J7030; J7040; J7050; J7060